=== PATIENT | male | born 1975 | race Caucasian/White ===

== ENCOUNTER 2016-04-30 08:39 | Outpatient (CLI) ==
[2013-09-09 16:44] VITALS: BMI 39.7
[2016-04-30 09:05] LABS: BASOPHILS % (AUTO) 0.7 % (0.0-3.0); EOSINOPHILS # (AUTO) 0.1 K/ul (0.0-0.7); HEMATOCRIT 45.7 % (42.0-52.0); HEMOGLOBIN 16.3 g/dl (14.0-18.0); IMMATURE GRANULOCYTE % (AUTO) 0.2 % (0.0-5.0); LYMPHOCYTES # (AUTO) 1.4 K/uL (0.60-3.4); LYMPHOCYTES % (AUTO) 26.2 (10.0-50.0); MEAN CORPUSCULAR HEMOGLOBIN 30.9 pg (27.0-31.0); MEAN CORPUSCULAR HGB CONC 35.7 (31.8-35.4); MEAN CORPUSCULAR VOLUME 86.7 fl (80.0-94.0); MONOCYTES # (AUTO) 0.5 K/uL (0.4-2.0); MONOCYTES % (AUTO) 8.4 (0-10); NEUTROPHILS # (AUTO) 3.4 K/ul (2.0-6.9); NEUTROPHILS % (AUTO) 62.5; PLATELET COUNT 201 10^3/uL (140-440); RED BLOOD COUNT 5.27 10^6/ul (4.70-6.10); WHITE BLOOD COUNT 5.49 K/ul (4.2-10.2)
[2016-04-30 09:32] LABS: ALBUMIN 3.7 g/dL (3.4-5.0); ALBUMIN/GLOBULIN RATIO 1.19; ANION GAP 15.8; BILIRUBIN,TOTAL 0.65 mg/dL (0.00-1.20); BUN/CREATININE RATIO 12.1; CALCIUM 9.7 mg/dL (8.2-10.2); CREATININE 1.57 mg/dL (0.60-1.10); POTASSIUM 3.8 mmol/L (3.5-5.1); TOTAL PROTEIN 6.8 g/dL (6.4-8.2)
--- NOTE | 2016-04-30 10:30 | CT ---
EXAM: CT of the head with and without contrast History: Hypertension. Comparison: Head CT 05/03/2012 Technique: Multiplanar CT images through the head were obtained with and without the administration of IV contrast Findings: The visualized paranasal sinuses and mastoid air cells are clear in general. No acute ca lvarial abnormalities. Intracranially the ventricular and cisternal spaces are normal in size, shape and configuration for a patient of this age. No dominant mass or midline shift. No hydrocephalous. No acute intracrania l hemorrhage or abnormal extraaxial fluid collections. No abnormal contrast enhancement. Stable per ivascular space within the right basal ganglial region. Impression: No acute intracranial process and no abnormal contrast enhancement.
== END 2016-04-30 08:40 | disposition home or self-care (01) ==
LOC: RAD 08:39
PROVIDERS: ATTEND Nurse Practitioner Family
DX: I10 Essential (primary) hypertension (principal); S06.9X9A Unspecified intracranial injury with loss of consciousness of unspecified duration, initial encounter
CPT/HCPCS: 36415; 80053; 85025

== ENCOUNTER 2016-07-07 08:40 | Outpatient (CLI) ==
[2013-09-09 16:44] VITALS: BMI 39.7
--- NOTE | 2016-07-07 09:00 | DI ---
EXAM: CHEST FRONTAL AND LATERAL VIEWS HISTORY: Erectile dysfunction. COMPARISON: 05/16/2012 FINDINGS: Heart size and mediastinal contour remain within normal limits. No acute infiltrates. Normal vascularity with no pleural fluid or pneumothorax. The bony thorax has no acute finding. IMPRESSION: No acute process.
== END 2016-07-07 08:41 | disposition home or self-care (01) ==
LOC: LAB 08:40
PROVIDERS: ATTEND Nurse Practitioner Family
DX: N52.9 Male erectile dysfunction, unspecified (principal); I10 Essential (primary) hypertension
CPT/HCPCS: 36415; 84402; 93005; 93010

== ENCOUNTER 2017-12-28 07:35 | Emergency (ER) ==
[2017-12-28 07:40] VITALS: BP 161/116; TEMP 98.3; BMI 45.0
[2017-12-28] MEDS ORDERED: NORCO 10-325 PO STA (08:03)
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
--- NOTE | 2017-12-28 09:49 | CT ---
EXAM: CT THORAX HISTORY: Sternal injury. TECHNIQUE: CT thorax without intravenous contrast. Multiplanar images presented. COMPARISON: No comparison CT thorax. Some comparison is made to CT abdomen and pelvis dated 10/17/19 10. FINDINGS: Heart size is in normal. Small amount of pericardial fluid which does not appear noticeably differen t than previously seen on abdominal CT in 2010. Thoracic aorta is within normal limits. There is no evidence of mediastinal hematoma. Lungs reveal a few patchy infiltrates in the right upper lobe. No pneumothorax or pleural fluid. No rmal vascularity. The bones reveal no acute deformity or fracture, including sternum. Peripheral soft tissues have no evidence of hematoma or contusion. Redemonstration of numerous tiny masses of the kidneys with overa ll renal enlargement suggesting polycystic kidney disease. IMPRESSION: 1. No definite acute injuries identified. Small amount of pericardial fluid similar to that seen in 2010. 2. Mild patchy right lung infiltrates suggesting pneumonia.
[2017-12-31 07:18] VITALS: BMI 45.8
== END 2017-12-28 10:09 | disposition home or self-care (01) ==
LOC: ED 07:35
DX: J18.9 Pneumonia, unspecified organism (principal); R07.89 Other chest pain; I16.0 Hypertensive urgency; W50.0XXA Accidental hit or strike by another person, initial encounter; W06.XXXA Fall from bed, initial encounter
CPT/HCPCS: 99283

== ENCOUNTER 2017-12-30 12:18 | Outpatient (CLI) ==
[2017-12-31 07:18] VITALS: BMI 45.8
== END 2017-12-30 12:19 | disposition home or self-care (01) ==
LOC: RHC-LAB 12:18
PROVIDERS: ATTEND Nurse Practitioner Family
DX: I10 Essential (primary) hypertension (principal); E66.9 Obesity, unspecified
CPT/HCPCS: 36415; 80053; 80061; 84443; 85025

== ENCOUNTER 2018-08-24 08:12 | Outpatient (CLI) ==
[2017-12-31 07:18] VITALS: BMI 45.8
--- NOTE | 2018-08-24 10:41 | MRI ---
EXAM: MRI of the brain with and without contrast HISTORY: Hypertension TECHNIQUE: Multiplanar imaging of the brain was performed using T1, T2, inversion recovery, diffusio n, gradient and postcontrast T1W sequences. Comparison none of this type FINDINGS: There is no restricted diffusion. The lateral ventricles and cortical sulci are normal. The basal cisterns are patent. Normal flow voids are identified within the basal cisterns. The chinmay nth and eighth cranial nerve complexes are normal. Normal flow signal is identified within the dural venous sinuses. Scattered T2 high signal foci are seen within the supratentorial white matter. No acute hemorrhages are seen. There is no mass effect. There are no extraaxial collections. No abnor mal enhancement is identified within the brain on postcontrast images. The craniocervical junction and midline structures are normal. The soft tissues of the skull base an d nasopharynx appear normal. The extracranial soft tissues are normal. There is mild mucosal thicke penny seen within the maxillary sinuses. The remainder of the paranasal sinuses and mastoid air cells are clear. IMPRESSION: There is no acute cerebral infarction. Minimal chronic small vessel ischemic changes seen within the supratentorial white matter. No acute intracranial abnormalities are seen.
== END 2018-08-24 08:13 | disposition home or self-care (01) ==
LOC: RAD 08:12
PROVIDERS: ATTEND Nurse Practitioner Family
DX: Z86.79 Personal history of other diseases of the circulatory system (principal); Q61.2 Polycystic kidney, adult type
CPT/HCPCS: 36415; 80053; 80061; 85025

== ENCOUNTER 2018-09-07 09:42 | Outpatient (CLI) ==
[2017-12-31 07:18] VITALS: BMI 45.8
--- NOTE | 2018-09-07 11:14 | MRI ---
Examination: Intracranial MRA without contrast 09/07/2018 Clinical information: Hypertension. Comparison: MRI brain 08/24/2018. TECHNIQUE: A 3-D [id number] intracranial MRA was performed. MIP images were then obtained. FINDINGS: Both the source and MIP images are reviewed. There is signal enhancement within both intr acranial internal carotid arteries. Mild fusiform ectasia of both cavernous and supraclinoid interna l carotid arteries. Patent bilateral posterior communicating arteries are identified. Normal signal enhancement within both proximal anterior cerebral arteries. There is signal enhancement within bot h proximal middle cerebral arteries. The distal left vertebral artery is dominant. The distal right vertebral artery terminates as the po sterior inferior cerebellar artery, a developmental variation. The distal left vertebral artery cont inues as the basilar artery. The distal left vertebral artery and basilar artery are tortuous with m inimal fusiform ectasia at the vertebrobasilar artery junction. There is signal enhancement within b oth proximal superior cerebellar arteries. There is a hypoplastic left P1 posterior cerebral artery with a dominant left posterior communicating artery. The left posterior communicating artery is tort uous. Otherwise, normal signal enhancement within both proximal posterior cerebral arteries. No lar ge vessel occlusion. No aneurysm is detected. Impression: 1. 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 2. 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 3. Mild fusiform ectasia distal left vertebral artery and proximal basilar artery. Distal left vert ebral artery is dominant.
== END 2018-09-07 09:43 | disposition home or self-care (01) ==
LOC: RAD 09:42
PROVIDERS: ATTEND Nurse Practitioner Family
DX: I10 Essential (primary) hypertension (principal)

== ENCOUNTER 2018-11-22 | Emergency (ER) | END 2018-11-22 20:42 | disposition home or self-care (01) | CPT/HCPCS: 36415; 80053; 81001; 85025; 96374; 99283 ==